=== PATIENT | female | born 1955 | race Caucasian/White ===

== ENCOUNTER 2023-01-23 14:55 | Emergency (ER) | payer MEDICARE, BC ==
[~2023-01-23] VITALS: Ht 165.1 cm; Wt 72.6 kg
[2023-01-23] MEDS ORDERED: SIMV-46 PO (15:25)
[2023-01-23] MEDS ORDERED: HYDROMORPHONE 1 MG/1 ML DISP.SYRIN IV ONE ×2 (15:30→19:00)
[2023-01-23] MEDS ORDERED: IV NORMAL SALINE 1000 ML BAG IV ONE (15:30)
[2023-01-23] MEDS ORDERED: ONDANSETRON 4 MG/2 ML VIAL IV ONE (15:30)
[2023-01-23] MEDS ORDERED: HYDROMORPHONE 1 MG/1 ML DISP.SYRIN ONE ×2 (15:37→18:55)
[2023-01-23] MEDS ORDERED: ONDANSETRON 4 MG/2 ML VIAL ONE (15:37)
[2023-01-23 15:47] LABS: BASOPHILS % (AUTO) 0.3 % (0.0-2.0); EOSINOPHILS # (AUTO) 0.1 K/uL (0.0-0.7); EOSINOPHILS % (AUTO) 0.8 % (0.0-7.0); HEMATOCRIT 37.2 % (31.2-41.9); HEMOGLOBIN 12.5 g/dL (10.9-14.3); LYMPHOCYTES # (AUTO) 1.2 K/uL (0.8-4.8); LYMPHOCYTES % (AUTO) 8.1 % (20.5-51.5); MEAN CORPUSCULAR HEMOGLOBIN 26.9 uug (24.7-32.8); MEAN CORPUSCULAR HGB CONC 34 g/dL (32.3-35.6); MEAN CORPUSCULAR VOLUME 79.7 fL (75.5-95.3); MONOCYTES # (AUTO) 0.7 K/uL (0.1-1.30); MONOCYTES % (AUTO) 4.6 % (0.0-11.0); NEUTROPHILS # (AUTO) 12.7 K/uL (1.8-8.9); NEUTROPHILS % (AUTO) 86.2 % (38.5-71.5); PLATELET COUNT (AUTO) 219 K/uL (179-408); RED BLOOD CELL COUNT(AUTO) 4.67 MIL/uL (3.63-4.92); RED CELL DISTRIBUTION WIDTH 14.2 % (12.3-17.7); WHITE BLOOD COUNT (AUTO) 14.8 K/uL (3.8-11.8)
[2023-01-23 15:53] LABS: DIFFERENTIAL COMMENT 1
[2023-01-23 15:59] LABS: CALCIUM 9.4 mg/dL (8.5-10.1); CARBON DIOXIDE 26 mmol/L (21-32); CHLORIDE 104 mmol/L (98-107); CREATININE 0.8 mg/dL (0.6-1.3); GLUCOSE 131 mg/dL (74-106); POTASSIUM 3.8 mmol/L (3.5-5.1); SODIUM SERUM 142 mmol/L (136-145); UREA NITROGEN, BLOOD 15 mg/dL (7-18)
[2023-01-23 16:08] LABS: ALANINE AMINOTRANSFERASE 38 U/L (14-59); ALBUMIN 4.2 g/dL (3.4-5.0); ALKALINE PHOSPHATASE 88 U/L (50-136); ASPARTATE AMINOTRANSFERASE 44 U/L (15-37); BILIRUBIN,DIRECT 0.2 mg/dL (0.0-0.2); BILIRUBIN,TOTAL 0.6 mg/dL (0.2-1.0); TOTAL PROTEIN, SERUM 7.6 g/dL (6.4-8.2)
[2023-01-23] MEDS ORDERED: ETOMIDATE 20 MG/10 ML VIAL ONE (16:38)
[2023-01-23] MEDS ORDERED: ETOMIDATE 20 MG/10 ML VIAL IV ONE (16:45)
[2023-01-23] MEDS ORDERED: LORAZEPAM 2 MG/1 ML VIAL IV ONE (19:15)
[2023-01-23] MEDS ORDERED: LORAZEPAM 2 MG/1 ML VIAL ONE (19:18)
[2023-01-23] MEDS ORDERED: PROPOFOL 200 MG/20 ML BOTTLE ONE (19:33)
[2023-01-23] MEDS ORDERED: PROPOFOL 200 MG/20 ML BOTTLE IV ONE (19:45)
[2023-01-23] MEDS ORDERED: LABETALOL HCL 100 MG/20 ML VIAL IV ONE (20:15)
[2023-01-23] MEDS ORDERED: LABETALOL HCL 100 MG/20 ML VIAL ONE (20:21)
[2023-01-23] MEDS ORDERED: AMLODIPINE 5 MG TABLET ONE (22:41)
[2023-01-23] MEDS ORDERED: AMLODIPINE 5 MG TABLET PO ONE (22:45)
[2023-01-23] MEDS ORDERED: HYDR-3980 PO (22:52)
[2023-01-24 02:09] VITALS: BP 152/98; TEMP 98.2; O2SAT 99
[2023-01-24] MEDS ORDERED: TRAM50TA2 PO (10:52)
== END 2023-01-24 01:30 | disposition home or self-care (01) ==
LOC: ER 14:57
DX: S53.124A Posterior dislocation of right ulnohumeral joint, initial encounter (principal); S70.11XA Contusion of right thigh, initial encounter; R51.9 Headache, unspecified; Z79.899 Other long term (current) drug therapy; E78.5 Hyperlipidemia, unspecified; Z88.2 Allergy status to sulfonamides; W17.89XA Other fall from one level to another, initial encounter; Y93.39 Activity, other involving climbing, rappelling and jumping off; Y92.099 Unspecified place in other non-institutional residence as the place of occurrence of the external cause; Y99.8 Other external cause status
CPT/HCPCS: 99285; 70450; 24600; 96374; 96361; 96375; 71045; 80076; 80048; 85025; 85730; 84484; 36415; 72170; 73060; 73551; 72125; 99152; 96376; 93005; 73070 ×3; J3490 ×2; J2060; J2405; J1170 ×2; J7040; A4606; A4663; G0500